=== PATIENT | female | born 1995 | race Caucasian/White ===

== ENCOUNTER 2021-07-04 23:18 | Emergency (ER) | payer BC ==
[~2021-07-04] VITALS: Ht 172.7 cm; Wt 61.2 kg
[2021-07-04 23:33] VITALS: BP 126/74
--- NOTE | 2021-07-04 23:37 | NUR ---
pt seen by Dr. Kenia KIRBY
--- NOTE | 2021-07-05 00:15 | NUR ---
Patient discharged to home in stable condition. Written and verbal after care instructions given. Patient verbalizes understanding of instruction.
== END 2021-07-05 00:15 | disposition home or self-care (01) ==
LOC: ER 23:31
DX: R06.02 Shortness of breath (principal); Z71.1 Person with feared health complaint in whom no diagnosis is made; Z88.0 Allergy status to penicillin; Z60.2 Problems related to living alone